=== PATIENT | female | born 1985 | race American Indian/Alaskan Native ===

== ENCOUNTER 2021-08-25 05:27 | Inpatient (IN) | payer MEDICAID ==
[2021-08-25] MEDS ORDERED: LACTATED RINGERS 1,000 ML ONE (06:33)
[2021-08-25] MEDS ORDERED: ONDANSETRON 4 MG/2 ML INJ IV PRN ×2 (06:48→10:00)
[2021-08-25] MEDS ORDERED: CARBOPROST TROMETHAMINE 250 MCG/1 ML INJ IM PRN (06:48)
[2021-08-25] MEDS ORDERED: BUTORPHANOL 2 MG/1 ML INJ IV PRN (06:48)
[2021-08-25] MEDS ORDERED: METHYLERGONOVINE MALEATE 0.2 MG/ML VIAL IM PRN (06:48)
[2021-08-25] MEDS ORDERED: AMPICILLIN/NS 2 GM/100 ML 2 GM/100 ML BAG IV ONE (06:48)
[2021-08-25] MEDS ORDERED: LOPERAMIDE 2 MG CAP PO PRN (06:48)
[2021-08-25] MEDS ORDERED: TERBUTALINE 1 MG/1 ML INJ SUB-Q PRN (06:48)
[2021-08-25] MEDS ORDERED: ePHEDrine SULFATE 50 MG/1 ML INJ IV PRN (06:48)
[2021-08-25] MEDS ORDERED: ACETAMINOPHEN 325 MG TAB PO PRN ×2 (06:48→10:00)
[2021-08-25] MEDS ORDERED: fentaNYL 100 MCG/2 ML INJ IV PRN (06:48)
[2021-08-25] MEDS ORDERED: miSOPROStol 200 MCG TAB PR PRN (06:48)
[2021-08-25] MEDS ORDERED: MINERAL OIL 30 ML ORAL LIQD PO PRN (06:48)
[2021-08-25] MEDS ORDERED: LIDOCAINE (2%) 20 MG/1 ML VIAL 20 ML MDV INFILTRATI ONE (06:48)
[2021-08-25] MEDS ORDERED: OXYTOCIN 10 UNIT/1 ML INJ IM PRN (06:48)
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
[2021-08-25] MEDS ORDERED: LACTATED RINGERS 1,000 ML IV SCH (07:00)
[2021-08-25] MEDS ORDERED: OXYTOCIN DRIP 30 UNITS/500 ML BAG IV SCH (07:00)
[2021-08-25 07:09] LABS: Hematocrit 38.7 % (30.3-42.9); Hemoglobin 13.1 gm/dl (10.1-14.3); Mean Corpuscular HGB Conc 34 % (30-34); Mean Corpuscular Volume 82 fl (79-97); Platelet Count 212 K/mm3 (140-440); Red Cell Distribution Width 15.9 % (13.2-15.2)
--- NOTE | 2021-08-25 07:24 | Event Note ---
Date: 08/25/21 Pt noted have precipitous delivery with both on myself and coming recreation manager provider Dr. Alcala on the floor. Neither provider was aware of pt delivering until after baby had been delivered. There was no overhead page or call to provider lounge to make providers aware. Neither provider phone rang at this time also.Dr. Alcala at beside at this time.
[2021-08-25] MEDS: OXYTOCIN DRIP 30 UNITS/500 ML BAG IV SCH ×2 (07:34→07:55)
--- NOTE | 2021-08-25 07:46 | Procedure Note ---
OB Delivery Note - Delivery Date of Delivery: 08/25/21 Surgeon: BRITTA FERRO (Delivery of placenta only ) Estimated blood loss: 300cc - Vaginal Delivery presentation: unknown Delivery induction: none Delivery placenta: spontaneous Episiotomy: none Delivery laceration: none Anesthesia: none Delivery comments: To patient room following precipitous delivery. Baby on maternal abdomen and both in stable condition. Cord doubly clamped and cut. Placenta delivered intact. Fundus firm. No lacerations noted. CHAIM to room to assess . Both left in delivery room in stable condition.
[2021-08-25] MEDS ORDERED: PROMETHAZINE 25 MG RECT SUPP PR PRN (10:00)
[2021-08-25] MEDS ORDERED: PROMETHAZINE 25 MG TAB PO PRN (10:00)
[2021-08-25] MEDS ORDERED: diphenhydrAMINE 25 MG CAP PO PRN (10:00)
[2021-08-25] MEDS ORDERED: WITCH HAZEL/ GLYCERIN PAD TP PRN (10:00)
[2021-08-25] MEDS ORDERED: LANOLIN/ZINC/DIMETHICONE (LANSINOH) 7 GM TP PRN (10:00)
[2021-08-25 10:16] LABS: Albumin 3.3 g/dL (3.9-5); Blood Urea Nitrogen 5 mg/dL (7-17); Calcium 8.5 mg/dL (8.4-10.2); Hemolysis Index 11; Uric Acid 5.1 mg/dL (3.5-7.6)
[2021-08-25] MEDS: IBUPROFEN 800 MG TAB PO SCH ×3 (10:21→23:50)
[2021-08-25 11:00] LABS: Alanine Aminotransferase < 5 units/L (7-56); BUN/Creatinine Ratio 10
[2021-08-25] MEDS ORDERED: AMPICILLIN/NS 1 GM/50 ML 1 GM/50 ML BAG IV SCH (11:00)
[2021-08-25] MEDS: K-LYTE 25 MEQ TABLET EFF PO SCH (15:24)
[2021-08-25 19:00] LABS: Protein/Creatinine Ratio,Urine 1.08
[2021-08-25 20:02] LABS: Hemoglobin 12.1 gm/dl (10.1-14.3)
[2021-08-25] MEDS ORDERED: MAGNESIUM HYDROXIDE (MOM) ORAL LIQD UDC PO PRN (22:00)
[2021-08-25] MEDS ORDERED: POTASSIUM CHLORIDE ER 20 MEQ TAB PO ONE (23:20)
[2021-08-26] MEDS ORDERED: TETANUS,DIPH,PERTUSS(ACELL) VACCINE 0.5 ML SYRINGE IM ONE (07:41)
[2021-08-26] MEDS: IBUPROFEN 800 MG TAB PO SCH ×2 (07:48→22:00)
[2021-08-26] MEDS: K-LYTE 25 MEQ TABLET EFF PO SCH (09:56)
[2021-08-26] MEDS: oxyCODONE /ACETAMINOPHEN 5-325MG TAB PO PRN ×2 (11:04→20:35)
--- NOTE | 2021-08-26 13:25 | Progress Note ---
Assessment and Plan Patient desires d/c home tomorrow b/c baby is in NICU - Patient Problems (1) Normal delivery Current Visit: Yes Status: Acute (2) Rh negative status during Current Visit: No Status: Acute Qualifiers: Trimester: third trimester Qualified Code(s): O26.893 - Other specified related conditions, third trimester; Z67.91 - Unspecified blood type, Rh negative Subjective - Subjective Date of service: 08/26/21 Principal diagnosis: PPD #1Precipitous Interval history: Sitting in chair in NICU with baby in her arms, complains of cramps, minimal bleeding Patient reports: appetite normal, ambulating normally : in NICU Objective - Vital Signs Latest vital signs: Vital Signs Temp Pulse Resp BP BP Pulse Ox Pulse Ox 08/26/21 08:45 98 08/26/21 07:53 97.6 F 58 L 20 119/76 99 08/26/21 00:00 98.6 F 77 16 104/78 08/25/21 21:00 96 08/25/21 20:11 98.0 F 61 18 119/73 95 08/25/21 16:00 60 18 137/86 100 08/25/21 14:31 99 F 52 L 17 136/81 100 Intake and Output 08/25/21 08/26/21 08/26/21 22:59 06:59 14:59 Intake Total 620 400 360 Output Total 200 Balance 420 400 360 Intake: Oral 320 200 360 Intake, Free Water 300 200 Output: Urine 200 Void 200 Other: Total, Intake Amount 320 200 360 Total, Output Amount 200 # Voids Void 1 1 1 - Labs Labs: Abnormal lab results 08/25/21 Range/Units 17:25 Urine Creatinine 51.0 H (0.1-20.0) mg/dL Urine Total Protein 55 H (5-11.8) mg/dL
[2021-08-27] MEDS: IBUPROFEN 800 MG TAB PO SCH ×2 (06:42→11:08)
--- NOTE | 2021-08-27 07:21 | Discharge Summary ---
Providers - Providers Date of Admission: 08/25/21 06:48 Date of discharge: 08/27/21 Attending physician: GERALDO PATRICK Primary care physician: GERALDO PATRICK Hospitalization Reason for admission: active labor Delivery: Episiotomy: none Laceration: none Other procedures: none complications: none Discharge diagnosis: IUP at term delivered baby: male Pertinent studies: Pt with some elevated blood pressures after delivery. They are now within normal range. Her pre eclampsia lab work resulted as normal. Blood pressure ranges have been 119-140's/80's. Pt denies KHAN, blurred vision, spots before her eyes, chest pain, shortness of breath, and upper abdominal pain. We discussed should any of these symptoms occur, she should call the carton catcher provider immediately. We also discussed she will need to come to the office in 1 week for a blood pressure check. All questions and concerns addressed before discharge. Hospital course: S: Pt doing well. Ambulating, voiding, and passing flatus okay. BC: POP's. O: VSS. Adequate I&O's. H/H 12.1/37.0. Fundus firm. minimal bleeding noted. A: 35 y.o. s/p @ term. In good condition . P: Discharge with instructions. Pt to scheduled blood pressure check in the office in 1 week. To schedule son's circumcision in the office in 1 week once discharged home. Condition at discharge: Good Disposition: 01 HOME / SELF CARE / HOMELESS Plan - Provider Discharge Summary Activity: routine, no sex for 6 weeks, no heavy lifting 4 weeks, no strenuous exercise Diet: routine Instructions: routine Additional instructions: [] Smoking cessation referral if applicable(refer to patient education folder for contact #) [] Refer to [facility] Booklet Call your doctor immediately for: * Fever > 100.5 * Heavy vaginal bleeding ( >1 pad per hour) * Severe persistent headache * Shortness of breath * Reddened, hot, painful area to leg or breast * Drainage or odor from incision. * Keep incision clean and dry at all times and follow doctor's instructions regarding bathing/showering - Follow up plan Follow up: GERALDO PATRICK MD [Primary Care Provider] - 7 Days (Congratulations on the of your baby boy! Please schedule his circumcision in the office in 1 week. You have been prescribed EMLA cream for your son's circumcision. Please do not use this cream at home, but bring it with you to your son's circumcision appointment. Please schedule your blood pressure check in the office in 1 week. Should you have any questions or concerns after discharge, please do not hesitate to call the office at [phone]. )
[2021-08-27] MEDS: PRENATAL VIT27-FE FUMARATE-FOLIC ACID VIT TAB PO SCH ×2 (11:08→11:09)
[2021-08-27] MEDS: K-LYTE 25 MEQ TABLET EFF PO SCH (11:09)
[2021-08-27 14:06] VITALS: BP 136/73
== END 2021-08-27 17:00 | disposition home or self-care (01) | DRG 775 ==
LOC: TRG 05:27 → LD 05:28 → TRG 07:38 → OB 14:22
PROVIDERS: ADMIT Obstetrics & Gynecology; ATTEND Obstetrics & Gynecology
PROC: 10E0XZZ Delivery of Products of Conception, External Approach (ICD-10-PCS; principal; 2021-08-25)
PROC: 3E0234Z Introduction of Serum, Toxoid and Vaccine into Muscle, Percutaneous Approach (ICD-10-PCS; 2021-08-25)
PROC: 3E0234Z Introduction of Serum, Toxoid and Vaccine into Muscle, Percutaneous Approach (ICD-10-PCS; 2021-08-26)
DX: O80 Encounter for full-term uncomplicated delivery (principal); Z3A.39 39 weeks gestation of pregnancy; Z37.0 Single live birth; Z20.822 Contact with and (suspected) exposure to COVID-19; Z23 Encounter for immunization
CPT/HCPCS: 36415; 80053; 82570; 83615; 84156; 84550; 85014; 85018; 85027; 85461; 86592; 86762; 86850; 86870; 86900; 86901; 87806; 99211; G0378; G0463; J2590; J2790; J3010; U0003